=== PATIENT | female | born 1985 | race African-American/Black ===

== ENCOUNTER → 2018-09-06 | Outpatient (CLI) | payer BC ==
--- NOTE | 2018-09-07 15:50 | SLEEP ---
DATE OF STUDY: 09/06/2018 ATTENDING PHYSICIAN: Dr. Dejah Cheung. REFERRING PHYSICIAN: Dr. Timmy Wright. The patient is a 33-year-old who weighs 250 pounds with a BMI of 38. The patient underwent sleep study at [facility]. This was a diagnostic study. During the night study, the patient spent 436 minutes in bed and slept for 393 minutes with a sleep efficiency of 90%. Sleep latency was 12 minutes with a REM latency of 125 minutes. Overall, sleep architecture showed normal stage 1 sleep, increased stage 2 sleep, normal slow wave sleep and reduced REM sleep, which was 6% of the total sleep time. During the night study, the patient had 2 obstructive apneas, 1 mixed and no central apneas and 104 hypopneas. The patient's apnea hypopnea index was 16 per hour, supine index 19 per hour and a REM index of 101 per hour. Nocturnal oximetry study revealed an average oxygen saturation of 96% with the lowest of 75%. 8.8% of time, oxygen saturation remained between 80% and 89% and was predominantly during REM sleep. EKG monitoring revealed normal sinus rhythm, average heart rate was 73 beats per minute. No arrhythmias observed. No clinically significant PLM seen. The patient met the criteria for CPAP, but it was late in the night of study. As a result, CPAP could not be initiated. IMPRESSION: 1. Moderate sleep apnea-hypopnea syndrome with worsening during rapid eye movement sleep. Total apnea hypopnea index 16 per hour with a rapid eye movement apnea hypopnea index of 101 per hour. 2. Nocturnal hypoxia predominantly during rapid eye movement sleep and related to obstructive sleep apnea. 3. No clinically significant periodic limb movements. RECOMMENDATIONS: 1. The patient should return for in-lab CPAP titration study. 2. Once optimum CPAP pressure is achieved, then follow up in 4-6 weeks to assess compliance and to document clinical improvement. 3. Weight loss is strongly advised. 4. Avoid CHIEF EXECUTIVE depressants. 5. Caution regarding driving until symptoms of sleep apnea have resolved with the use of CPAP. DIONE REGAN MD DR: ALEX/jane JOB#: [id number] / [id number] ecc DEJAH CHEUNG MD, DONALD MD
== END | disposition home or self-care (01) ==
LOC: SLPLAB 19:03
PROVIDERS: ATTEND Internal Medicine Cardiovascular Disease
DX: G47.30 Sleep apnea, unspecified (principal); R09.02 Hypoxemia; R53.83 Other fatigue; I49.9 Cardiac arrhythmia, unspecified
CPT/HCPCS: 95810